=== PATIENT | male | born 2000 | race Two or more races ===

== ENCOUNTER 2021-09-19 18:56 | Emergency (ER) | payer MEDICAID ==
[~2021-09-19] VITALS: Ht 180.3 cm; Wt 72.6 kg
[2021-09-19 19:08] VITALS: BP 131/72
[2021-09-19] MEDS ORDERED: FAMOTIDINE 20 MG TAB PO ONE (19:45)
[2021-09-19] MEDS ORDERED: LIDOCAINE VISCOUS 2% 15ML UD PO ONE (19:45)
[2021-09-19] MEDS ORDERED: ONDANSETRON ODT 4 MG TAB PO ONE (19:45)
[2021-09-19] MEDS ORDERED: ALUM & MAG HYDROX-SIMETH LIQ(MAALOX) 30 ML PO ONE (19:45)
== END 2021-09-19 20:11 | disposition left against medical advice (07) ==
LOC: ER 19:00
DX: R10.9 Unspecified abdominal pain (principal); Z53.21 Procedure and treatment not carried out due to patient leaving prior to being seen by health care provider
CPT/HCPCS: Q0162

== ENCOUNTER 2021-11-08 06:09 | Emergency (ER) | payer MEDICAID ==
[~2021-11-08] VITALS: Ht 177.8 cm; Wt 69.9 kg
[2021-11-08] MEDS ORDERED: HALOPERIDOL LACTATE 5 MG/ML INJ VIAL IM ONE (07:45)
[2021-11-08] MEDS ORDERED: diphenhdrAMINE HCL 50 MG/1 ML VL IM ONE (07:45)
[2021-11-08] MEDS ORDERED: SODIUM CHLORIDE 0.9% 1,000 ML IV ONE (08:00)
[2021-11-08 10:03] LABS: Basophils # (auto) 0.1 10 ^3/uL (0-0.2); Basophils % (auto) 1.6 % (0.0-2.0); Eosinophils # (auto) 0.1 10 ^3/uL (0-0.8); Eosinophils % (auto) 2.4 % (0.0-7.0); Hemoglobin 13.2 g/dL (13.5-17.5); Lymphocytes # (auto) 1.1 10 ^3/uL (0.4-5.4); Lymphocytes % (auto) 21.2 % (10.0-50.0); Mean Corpuscular Hemoglobin 29.1 pg (28.0-32.0); Mean Corpuscular Hgb Conc. 34.8 g/dL (32.0-36.0); Mean Corpuscular Volume 83.6 fL (80.0-100.0); Monocytes # (auto) 0.3 10 ^3/uL (0-1.3); Monocytes % (auto) 6.8 % (0.0-12.0); Neutrophils # (auto) 3.5 10 ^3/uL (1.6-8.6); Nucleated Red Blood Cells % 0.1 %; Red Blood Cells 4.55 10^6/uL (4.5-5.90); Red Cell Distribution Width 13.9 % (11.8-14.3); White Blood Cell 5.1 10^3/uL (4.4-10.8)
[2021-11-08 10:09] LABS: Albumin 3.8 g/dL (3.4-5.0); Anion Gap 6 (5-15); Blood Urea Nitrogen 14 mg/dL (7-18); Calcium 8.6 mg/dL (8.5-10.1); Carbon Dioxide 26 mmol/L (21-32); Chloride 110 mmol/L (98-107); Glucose 85 mg/dL (74-106); Magnesium 2.5 mg/dL (1.6-2.6); Sodium 142 mmol/L (136-145)
[2021-11-08 10:14] LABS: Alanine Aminotransferase 39 U/L (16-61); Alkaline Phosphatase 86 U/L (45-117); Aspartate Aminotransferase 74 U/L (15-37); BUN/Creatinine Ratio 12.2; Bilirubin, Total 0.7 mg/dL (0.2-1.0); Blood Alcohol < 3.0 mg/dL (0-5); GFR African American 103 mL/min; GFR Non-African American 85 mL/min; Total Protein 6.7 g/dL (6.4-8.2)
[2021-11-08] MEDS ORDERED: LORazepam 2MG/ML-1ML VIAL IV ONE (10:45)
[2021-11-08] MEDS ORDERED: OLANZapine 5 MG TAB PO ONE (10:45)
[2021-11-08 11:04] LABS: Urine WBC None Seen /hpf (0 - 3)
[2021-11-08 11:23] LABS: Urine Amorphous Crystal FEW /hpf (None Seen); Urine Bacteria NONE SEEN /hpf (None Seen); Urine Blood Negative /uL (Negative); Urine Budding Yeast MODERATE /hpf (None Seen); Urine Specific Gravity 1.025 (1.001-1.035)
[2021-11-08 11:29] LABS: Alcohol, Urine < 3.0 mg/dL (0-10); Amphetamine Screen, Urine NEGATIVE (NEGATIVE); Barbiturate Scree,Urine NEGATIVE (NEGATIVE); Benzodiazephine Screen, Urine NEGATIVE (NEGATIVE); Cannabinoid Screen, Urine NEGATIVE (NEGATIVE); Cocaine Screen, Urine NEGATIVE (NEGATIVE); Opiate Scree,Urine NEGATIVE (NEGATIVE); Phencyclidine Screen, Urine NEGATIVE (NEGATIVE)
[2021-11-08] MEDS ORDERED: TRANEXAMIC ACID 1,000 MG in SODIUM CHL 0.9% 100 ML IV ONE (18:45)
[2021-11-08] MEDS ORDERED: TRANEXAMIC ACID 0 ML ONE (19:45)
[2021-11-09 09:39] VITALS: BP 124/62
== END 2021-11-09 12:33 | disposition left against medical advice (07) ==
LOC: EDBD 06:09 → ER 06:09
DX: F29 Unspecified psychosis not due to a substance or known physiological condition (principal)
CPT/HCPCS: 36415; 80053; 80307; 80320; 81001; 83735; 85025; 96361; 96372; 96374; 99285; J1200; J1630; J2060; J7030